=== PATIENT | female | born 1945 | race Caucasian/White ===

== ENCOUNTER 2017-01-24 10:19 | Observation (INO) | payer BC, MEDICARE ==
--- NOTE | 2017-01-21 08:44 | HP ---
DATE: 01/24/17 ADMISSION DIAGNOSIS: 1. SYMPTOMATIC CHOLELITHIASIS. ANTICIPATED PROCEDURE: 1. Cholecystectomy. HISTORY OF PRESENT ILLNESS: Patient has epigastric pain and gallbladder stone in the gallbladder neck. PAST MEDICAL HISTORY: ALLERGIES: NONE. CURRENT MEDICATIONS: None. SURGERIES: None. SOCIAL HISTORY: Negative. FAMILY HISTORY: Negative. REVIEW OF SYSTEMS: Negative. PHYSICAL EXAMINATION: Vital signs normal. CHEST: Clear. COR: Regular. ABDOMEN: No palpable organomegaly or mass. IMPRESSION: 1. SYMPTOMATIC CHOLELITHIASIS. PLAN: Laparoscopic cholecystectomy.
[~2017-01-24 10:19] MED LIST: BRIDION 200MG/2ML IV ONE; DIPRIVAN 200 MG/20 ML IV ONE; Lactated Ringers 1,000 ML IV ONE; ROBINUL IV ONE; SUBLIMAZE 250 MCG/5 ML IV ONE; Sensorcaine 0.25% 10 ML ONE; Zemuron 100 MG/10 ML IV ONE; Zofran 4 MG/2 ML VIAL IV ONE
[2017-01-24] MEDS: Lactated Ringers 1,000 ML IV SCH ×2 (10:51→17:04)
[2017-01-24] MEDS ORDERED: MEFOXIN 2 GM PREMIX** 2 GM/50 ML ML IV SCH (11:00)
[2017-01-24 11:34] LABS: ALKALINE PHOSPHATASE 128 U/L (46-116); BLOOD UREA NITROGEN 9 mg/dL (9-20); CHLORIDE 106 mEq/L (98-107); Carbon Dioxide 28.7 mEq/L (21-32); Glucose 93 MG/DL (70-110); Potassium 4.1 mEq/L (3.5-5.1); SGOT/AST 23 U/L (15-37); SGPT/ALT 11 U/L (12-78); SODIUM 142 mEq/L (136-145); Total Protein 7.2 gm/dL (6.4-8.2)
[2017-01-24] MEDS ORDERED: TRANDATE 100 MG/20 ML MDV FOR DRIP IV ONE (13:58)
[2017-01-24] MEDS ORDERED: MORPHINE SULFATE 10 MG/ML ONE (14:12)
[2017-01-24] MEDS ORDERED: Lactated Ringers 1,000 ML IV ONE (17:04)
[2017-01-24] MEDS ORDERED: MORPHINE SULFATE 4 MG INJ IV PRN (18:48)
[2017-01-24] MEDS ORDERED: NORCO 5/325 MG PO PRN (18:49)
[2017-01-24] MEDS: Zofran 4 MG/2 ML VIAL IV PRN (23:46)
[2017-01-25] MEDS: Zofran 4 MG/2 ML VIAL IV PRN (06:58)
[2017-01-25] MEDS ORDERED: MEDICATION INTERVENTION MC SCH (07:30)
--- NOTE | 2017-01-25 09:12 | OP ---
SURGERY DATE: 01/24/17 SURGERY TIME: 1305 PREOPERATIVE DIAGNOSIS: 1. SYMPTOMATIC CHOLELITHIASIS. POSTOPERATIVE DIAGNOSIS: 1. SYMPTOMATIC CHOLELITHIASIS. PROCEDURE: 1. Laparoscopic cholecystectomy. SURGEON: Jordon Granados M.D. ANESTHESIA: General endotracheal tube. COMPLICATIONS: None. CONDITION: Stable. INDICATION: Patient with upper abdominal pain. US positive. Seen and examined. Procedure discussed in detail. Wished to proceed. OPERATIVE PROCEDURE: Taken to surgery. General anesthetic. Routine prep and drape. Veress needle inserted. Opened to a pressure of 1. Insufflated to a pressure of 14. Four 5s. Good visualization. Cystic duct defined. Triply Ligaclipped and transected. Clips totally cross wall approximated. Gallbladder rolled out of gallbladder fossa. Gallbladder delivered through the umbilical port with a small amount of widening. A hole closure device was used. Good seal was present. CO2 was then exsufflated. The fluid had been totally exsufflated. Was totally clean and clear. Skin closed with 4-0 Vicryl and Steri-strips. Patient tolerated the procedure satisfactory.
[2017-01-25] MEDS ORDERED: ZINC 50 MG PO SCH (10:00)
[2017-01-25] MEDS ORDERED: TYLENOL EXTRA STRENGTH 500 MG PO SCH (10:00)
[2017-01-25] MEDS ORDERED: VITAMIN B-12 100 MCG PO SCH (10:00)
[2017-01-25] MEDS ORDERED: Vitamin E 400 UNIT SOFTGEL PO SCH (10:00)
[2017-01-25] MEDS ORDERED: VITAMIN D PO SCH (10:00)
[2017-01-25] MEDS ORDERED: VITAMIN A 8000 UNIT PO SCH (10:00)
[2017-01-25] MEDS ORDERED: Zinc Gluconate 50 MG PO SCH (10:00)
[2017-01-25] MEDS ORDERED: Vitamin C 500 MG PO SCH (10:00)
[2017-01-25] MEDS ORDERED: NON-FORMULARY ITEM (Cholecalciferol (Vitamin D3) [Vitamin D3] 2,000 UNIT) PO SCH (10:00)
[2017-01-25] MEDS ORDERED: Protonix 40MG Tablet PO SCH (10:00)
[2017-01-25] MEDS ORDERED: IMODIUM 2 MG PO SCH (10:00)
[2017-01-25] MEDS ORDERED: TYLENOL 325 MG PO PRN (14:29)
[2017-01-25 17:43] VITALS: BP 137/73; PULSE 69; O2SAT 90
== END 2017-01-25 18:00 | disposition home or self-care (01) ==
LOC: SDC 10:19 → MED SURG 17:20
PROVIDERS: ADMIT Surgery; ATTEND Surgery
PROC: 0FT44ZZ Resection of Gallbladder, Percutaneous Endoscopic Approach (ICD-10-PCS; principal; 2017-01-24)
DX: K80.20 Calculus of gallbladder without cholecystitis without obstruction (principal)
CPT/HCPCS: 00790; 36415; 80053; 88304; 94760; 99100; G0378; J0694; J2270; J2405; J2704; J3010; A9270-GY

== ENCOUNTER 2019-08-01 23:36 | Emergency (ER) | payer MEDICARE ==
[2019-08-02] MEDS ORDERED: STADOL 2 MG IM ONE (01:05)
[2019-08-02] MEDS ORDERED: Phenergan 25 MG INJ IM ONE (01:06)
[2019-08-02] MEDS ORDERED: Phenergan 25 MG INJ ONE (01:12)
[2019-08-02] MEDS ORDERED: STADOL 2 MG ONE (01:12)
--- NOTE | 2019-08-02 01:20 | ERPHSYRPT ---
- History of Present Illness Time Seen by Provider: 08/01/19 23:49 Source: patient, other (friend) Exam Limitations: no limitations Patient Subjective Stated Complaint: PT STATES, "I [place] AND WAS UP THERE TO PAY MY BILL AND JUST FELL. I FELL INTO SOMEONE' S W/C AND CUT MY HAND". Triage Nursing Assessment: PT C/O FALLING WHILE AT [employer] PAYING FOR HER BILL. PT DENIES FALLING OVER ANYTHING. PT STATES, "I THINK MY SHOE JUST STUCK TO THE FLOOR AND DIDN'T SLIDE AND I JUST FELL. I FELL INTO SOMEONE ELSES WHEELCHAIR". PT C/O RT SIDE/RT HIP PAIN FROM FALL. PT HAS SM LACERATION TO LT THUMB FROM FALL, COVERED WITH BANDAID. NO BRUISING OR EDEMA NOTED TO RT HIP AREA. Timing/Duration: hour(s) (about 2 hours ago) Occured at: other ([facility]) Context: lost balance (fell onto right hip) Quality: sharpness (especially with movement) Hip Pain Location: hip (R) Severity of Pain-Max: moderate Severity of Pain-Current: moderate Modifying Factors: Improves With: movement Symptoms prior to fall: none Associated Symptoms: denies symptoms Allergies/Adverse Reactions: penicillin G Allergy (Verified 01/10/17 16:03) Hives Home Medications: Ascorbic Acid 500 mg [Vitamin C 500 MG] 500 mg PO DAILY 06/10/13 [History] Cholecalciferol (Vitamin D3) [Vitamin D3] 2,000 unit PO DAILY 06/10/13 [History] Vitamin A 8,000 unit PO DAILY 06/10/13 [History] Vitamin E 400 Units [Vitamin E 400 UNIT SOFTGEL] 800 iu PO DAILY 06/10/13 [History] Acetaminophen [Tylenol Extra Strength] 500 mg PO DAILY 01/10/17 [History] Cyanocobalamin 100 Mcg [Vitamin B-12 100 Mcg] 100 mcg PO DAILY 01/10/17 [ History] Loperamide HCl [Anti-Diarrheal] 2 mg PO DAILY 01/10/17 [History] Zinc 50 mg PO DAILY 01/24/17 [History] Hx Tetanus, Diphtheria Vaccination/Date Given: Yes Hx Influenza Vaccination/Date Given: Yes Hx Pneumococcal Vaccination/Date Given: Yes Immunizations Up to Date: Yes - Review of Systems Constitutional: No Symptoms Eyes: No Symptoms Ears, Nose, & Throat: No Symptoms Respiratory: No Symptoms Cardiac: No Symptoms Abdominal/Gastrointestinal: No Symptoms Genitourinary Symptoms: No Symptoms Musculoskeletal: Injury (right hip) Neurological: No Symptoms Psychological: No Symptoms Endocrine: No Symptoms Hematologic/Lymphatic: No Symptoms Immunological/Allergic: No Symptoms All Other Systems: Reviewed and Negative - Past Medical History Pertinent Past Medical History: Yes Neurological History: No Pertinent History ENT History: No Pertinent History Cardiac History: No Pertinent History Respiratory History: No Pertinent History Endocrine Medical History: No Pertinent History Musculoskeletal History: Fractures GI Medical History: GERD, Gallbladder Disease, Ulcer History: No Pertinent History Psycho-Social History: No Pertinent History Female Reproductive Disorders: No Pertinent History, Fibroids - Past Surgical History Past Surgical History: Yes Neuro Surgical History: No Pertinent History Cardiac: No Pertinent History Respiratory: No Pertinent History Gastrointestinal: Cholecystectomy Genitourinary: No Pertinent History Musculoskeletal: No Pertinent History Female Surgical History: Other Other Surgical History: d & c, colonscopy, LT FOOT FRACTURE WITH PLATE AND SCREWS - Social History Smoking Status: Never smoker Exposure to second hand smoke: Yes Drug Use: none Patient Lives Alone: Yes - Female History Hx Now: No - Nursing Vital Signs Nursing Vital Signs: Initial Vital Signs Temperature 97.8 F 08/01/19 23:55 Pulse Rate 69 08/01/19 23:55 Respiratory Rate 17 08/01/19 23:55 Blood Pressure 141/89 08/01/19 23:55 O2 Sat by Pulse Oximetry 95 08/01/19 23:55 Pain Scale Pain Intensity 5 - Physical Exam General Appearance: mild distress, alert Eye Exam: PERRL/EOMI, eyes nml inspection Ears, Nose, Throat Exam: normal ENT inspection, moist mucous membranes Neck Exam: normal inspection, non-tender, supple, full range of motion Respiratory Exam: normal breath sounds, lungs clear, airway intact, No chest tenderness Cardiovascular Exam: regular rate/rhythm, normal heart sounds, normal peripheral pulses Gastrointestinal Exam: soft, normal bowel sounds, No tenderness Pelvic Exam: not done Rectal Exam: not done Back Exam: normal inspection, decreased range of motion, No vertebral tenderness Extremity Exam: normal inspection, pelvis stable, limited range of motion, tenderness (right hip area), other (minor scratch on left thumb) Neurologic Exam: alert, oriented x 3, cooperative, normal mood/affect, nml station & gait, sensation nml, No motor deficits Skin Exam: normal color, warm, dry Lymphatic Exam: No adenopathy SpO2 Interpretation: normal SpO2: 95 O2 Delivery: Room Air - CT Exams Pelvis CT Interpretation: Negative, Tele-radiologist Report Ordered Tests: Active Orders 24 hr Category Date Time Status PELVIS WITHOUT CONTRAST [CT] Stat Exams 08/02/19 00:12 Taken Medication Summary Discontinued Medications Generic Name Dose Route Start Last Admin Trade Name Cha PRN Reason Stop Dose Admin Butorphanol Tartrate 1 mg 08/02/19 01:05 08/02/19 01:14 Stadol 2 Mg IM 08/02/19 01:06 1 mg STAT ONE Administration Butorphanol Tartrate Confirm 08/02/19 01:12 Stadol 2 Mg Administered 08/02/19 01:13 Dose 2 mg .ROUTE .STK-MED ONE Promethazine HCl 12.5 mg 08/02/19 01:06 08/02/19 01:15 Phenergan 25 Mg Inj IM 08/02/19 01:07 12.5 mg STAT ONE Administration Promethazine HCl Confirm 08/02/19 01:12 Phenergan 25 Mg Inj Administered 08/02/19 01:13 Dose 25 mg .ROUTE .STK-MED ONE - Progress Progress: improved, re-examined Progress Note: 08/02/19 07:37 She requested a pain shot, given. Rx for few norco and zofran. Counseled pt/family regarding: diagnosis, need for follow-up, rad results - Departure Departure Disposition: Home Clinical Impression: Contusion of hip, right Qualifiers: Encounter type: initial encounter Qualified Code(s): S70.01XA - Contusion of right hip, initial encounter Condition: Stable Critical Care Time: No Referrals: REYNALDO HOLCOMB MD [Primary Care Provider] - Instructions: Contusion (DC) Additional Instructions: Home for rest. Activity as tolerated. Narcotic pain medicine has many side- effects and can make you sleepy. See your Dr. if not better soon. Prescriptions: Hydrocodone/APAP 5-325 Tab^^^ [[place] 5-325 Tablet^^^] 1 tab PO Q6HPRN PRN #8 tablet MDD 4 PRN Reason: Pain Ondansetron ODT 4 MG [Zofran Odt 4 mg] 4 mg PO Q6H PRN PRN #12 tab.rapdis PRN Reason: Nausea/Vomiting
[2019-08-02 01:53] VITALS: BP 133/76; PULSE 54
[2019-08-02 07:38] VITALS: O2SAT 95
--- NOTE | 2019-08-02 09:54 | XRAY ---
Indication: Right hip pain following fall. Multiple contiguous axial images obtained through the pelvis with special attention to the osseous structures. Two-dimensional sagittal and coronal reformatted images obtained. Comparison: None No acute fracture, dislocation, or suspicious bony lesions. Both hips demonstrates degenerative joint space loss. Mild pubis symphysis degenerative changes. Incidental moderate degenerative changes of the last 3 lumbar disc levels. Visualized noncontrasted soft tissues demonstrates scattered descending/sigmoid diverticulosis and small fatty umbilical hernia. Mild aortoiliac calcifications. Remaining uterus and bladder are unremarkable. Impression: 1. Negative acute fracture/dislocation. 2. Degenerative changes of both hips, pubis symphysis, and lower lumbar spine. 3. Incidental colonic diverticulosis and small fatty umbilical hernia. Comment: Preliminary interpretation was made by [facility]. No discrepancy. CTDI 18.92
== END 2019-08-02 01:49 | disposition home or self-care (01) ==
LOC: ED 23:36
DX: S70.01XA Contusion of right hip, initial encounter (principal); W01.198A Fall on same level from slipping, tripping and stumbling with subsequent striking against other object, initial encounter; M25.551 Pain in right hip; Z79.899 Other long term (current) drug therapy
CPT/HCPCS: 72192; 96372; 99284; J0595; J2550